=== PATIENT | female | born 1995 | race Two or more races ===

== ENCOUNTER 2016-11-13 21:50 | Emergency (ER) | payer OTHER ==
[2016-11-14 00:04] LABS: Hematocrit 37 % (35-47); Hemoglobin 12.5 g/dl (12.0-16.0); Mean Corpuscular HGB Conc 34 g/dl (31-36); Mean Corpuscular Hemoglobin 31 pg (27-31); Mean Corpuscular Volume 93 fL (80-97); Mean Platelet Volume 9 um3 (7.4-10.4); Red Blood Count 3.99 10^6/ul (4.0-5.4); Red Cell Distribution Width 13 % (10.5-15); White Blood Count 9.1 10^3/ul (3.5-10.8)
[2016-11-14 00:21] LABS: ALT 11 U/L (7-52); AST 12 U/L (13-39); Albumin 4.4 g/dL (3.2-5.2); Alkaline Phosphatase 37 U/L (34-104); Anion Gap 6 mmol/L (2-11); BUN/Creatinine Ratio 26.2 (8-20); Blood Urea Nitrogen 17 mg/dL (6-24); CO2 Carbon Dioxide 27 mmol/L (22-32); Calcium 9.2 mg/dL (8.6-10.3); Chloride 104 mmol/L (101-111); EGFR African American 145.3 (>60); Globulin 2.4 g/dL (2-4); Glucose 89 mg/dL (70-100); Lipase 39 U/L (11.0-82.0); Potassium 3.8 mmol/L (3.5-5.0); Sodium 137 mmol/L (133-145); Total Protein 6.8 g/dL (6.4-8.9)
[2016-11-14 00:46] VITALS: BP 99/60
--- NOTE | 2016-11-14 02:10 | ED ---
GI/ HPI - HPI Summary HPI Summary: 21F presents with intermittent RLQ for 2 weeks. She states she was seen at urgent care a week ago and they told her she has a cyst. She states she had her appendix removed when she was younger because it ruptured and it caused her to have a fallopian tube infection. She denies any n/v/d/c, dysuria, hematuria , vaginal discharge or bleeding, fever. She has never had this pain before. She denies any history of STDs. She has been taking ibuprofen for her pain. - History of Current Complaint Chief Complaint: EDAbdPain Time Seen by Provider: 11/13/16 22:52 Stated Complaint: PELVIC PAIN Pain Intensity: 7 - Allergy/Home Medications Allergies/Adverse Reactions: Allergies Allergy/AdvReac Type Severity Reaction Status Date / Time No Known Allergies Allergy Verified 11/13/16 21:53 PMH/Surg Hx/FS Hx/Imm Hx Endocrine/Hematology History: Denies: Hx Anticoagulant Therapy Cardiovascular History: Denies: Hx Hypertension Infectious Disease History: No Infectious Disease History: Denies: Traveled Outside the [place] in Last 30 Days - Family History Known Family History: Positive: Hypertension - Social History Alcohol Use: None Substance Use Type: Reports: None Smoking Status (MU): Never Smoked Tobacco Review of Systems Negative: Fever Negative: Chest Pain Negative: Shortness Of Breath Positive: Abdominal Pain - RLQ. Negative: Vomiting, Diarrhea, Nausea All Other Systems Reviewed And Are Negative: Yes Physical Exam Triage Information Reviewed: Yes Vital Signs On Initial Exam: Initial Vitals Temp Pulse Resp BP Pulse Ox 98.8 F 59 16 133/74 99 11/13/16 21:53 11/13/16 21:53 11/13/16 21:53 11/13/16 21:53 11/13/16 21:53 Vital Signs Reviewed: Yes Appearance: Positive: Well-Appearing Skin: Positive: Warm, Dry Head/Face: Positive: Normal Head/Face Inspection Eyes: Positive: Normal, EOMI, DOMINGO, Conjunctiva Clear Respiratory/Lung Sounds: Positive: Clear to Auscultation, Breath Sounds Present Cardiovascular: Positive: Normal, RRR Abdomen Description: Positive: Soft, Other: - mild tenderness in RLQ Bowel Sounds: Positive: Present - Sandy Coma Scale Coma Scale Total: 15 Diagnostics - Vital Signs Vital Signs Temp Pulse Resp BP Pulse Ox 11/13/16 23:31 57 98 11/13/16 23:30 98.5 F 57 16 99/60 98 11/13/16 21:53 98.8 F 59 16 133/74 99 - Laboratory Lab Results: Lab Results 11/13/16 11/13/16 Range/Units 23:43 23:43 WBC 9.1 (3.5-10.8) 10^3/ul RBC 3.99 L (4.0-5.4) 10^6/ul Hgb 12.5 (12.0-16.0) g/dl Hct 37 (35-47) % MCV 93 (80-97) fL MCH 31 (27-31) pg MCHC 34 (31-36) g/dl RDW 13 (10.5-15) % Plt Count 206 (150-450) 10^3/ul MPV 9 (7.4-10.4) um3 Neut % (Auto) 55.7 (38-83) % Lymph % (Auto) 34.7 (25-47) % [place] % (Auto) 7.6 (1-9) % Eos % (Auto) 1.2 (0-6) % Baso % (Auto) 0.8 (0-2) % Absolute Neuts (auto) 5.0 (1.5-7.7) 10^3/ul Absolute Lymphs (auto) 3.1 (1.0-4.8) 10^3/ul Absolute Monos (auto) 0.7 (0-0.8) 10^3/ul Absolute Eos (auto) 0.1 (0-0.6) 10^3/ul Absolute Basos (auto) 0.1 (0-0.2) 10^3/ul Absolute Nucleated RBC 0 10^3/ul Nucleated RBC % 0 Sodium 137 (133-145) mmol/L Potassium 3.8 (3.5-5.0) mmol/L Chloride 104 (101-111) mmol/L Carbon Dioxide 27 (22-32) mmol/L Anion Gap 6 (2-11) mmol/L BUN 17 (6-24) mg/dL Creatinine 0.65 (0.51-0.95) mg/dL Est GFR ( Amer) 145.3 (>60) Est GFR (Non-Af Amer) 113.0 (>60) BUN/Creatinine Ratio 26.2 H (8-20) Glucose 89 (70-100) mg/dL Calcium 9.2 (8.6-10.3) mg/dL Total Bilirubin 0.40 (0.2-1.0) mg/dL AST 12 L (13-39) U/L ALT 11 (7-52) U/L Alkaline Phosphatase 37 (34-104) U/L C-React Prot High Sens < 0.20 mg/L Total Protein 6.8 (6.4-8.9) g/dL Albumin 4.4 (3.2-5.2) g/dL Globulin 2.4 (2-4) g/dL Albumin/Globulin Ratio 1.8 (1-3) Lipase 39 (11.0-82.0) U/L Beta HCG, Quant < 0.60 mIU/mL Result Diagrams: 11/13/16 23:43 11/13/16 23:43 Lab Statement: Any lab studies that have been ordered have been reviewed, and results considered in the medical decision making process. - Ultrasound No standard instances Ultrasound Interpretation: Positive (See Comments) - 1.7cm complex follicule in right ovary reflexts hemorrhagic follicle Ultrasound Interpretation Completed By: Radiologist SOPHIAU Course/Dx - Course Course Of Treatment: 21F presents with intermittent RLQ for 2 weeks. She states she was seen at urgent care a week ago and they told her she has a cyst. She states she had her appendix removed when she was younger because it ruptured and it caused her to have a fallopian tube infection. She denies any other symptoms besides pain. on exam mild tenderness in RLQ. normal wbc and crp and h/h. u/s shows hemorrhagic follicle. told to follow up with [facility]. patient understands and agrees with plan. - Diagnoses Differential Diagnoses - Female: Ovarian Cyst, Ovarian Torsion, Urinary Tract Infection Provider Diagnoses: Hemorrhagic cyst of right ovary Discharge - Discharge Plan Condition: Good Disposition: HOME Patient Education Materials: Ruptured Ovarian Cyst (ED) Referrals: [facility] [Primary Care Provider] - Coleman Mccray MD [Medical Doctor] - Additional Instructions: Take Tylenol or ibuprofen for pain Follow up with [facility] Return to ED if develop any new or worsening symptoms
--- NOTE | 2016-11-14 07:45 | RAD ---
INDICATION: 21-year-old with pelvic pain COMPARISON: None TECHNIQUE: Longitudinal and transverse transvaginal scans of the pelvis were obtained. FINDINGS: Uterus: The uterus is normal in size. There are no focal masses. The uterus measures 7.0 x 2.9 x 4.1 cm. Endometrial thickness: The endometrial thickness is measured at 0.6 cm. . Free fluid: There is no significant free fluid . Ovaries: The ovaries are normal in size. The right ovary measures 5.4 x 2.3 x 1.2 cm. The left ovary measures 3.4 x 1.4 x 2.3 cm. There is a mildly complex right ovarian cyst which is likely hemorrhagic or involuting. This measures 1.7 x 1.0 x 1.2 cm. Doppler interrogation demonstrates flow to each ovary. Other: None IMPRESSION: PROBABLE SMALL INVOLUTING OR HEMORRHAGIC RIGHT OVARIAN CYST.
== END 2016-11-14 02:15 | disposition home or self-care (01) ==
LOC: ED 21:50
DX: N83.201 Unspecified ovarian cyst, right side (principal); Z32.02 Encounter for pregnancy test, result negative
CPT/HCPCS: 36415; 76830; 80053; 83690; 84702; 85025; 86141; 99282

== ENCOUNTER → 2017-08-12 11:23 | Emergency (ER) | payer MEDICAID, OTHER ==
[2017-08-12 11:37] VITALS: BP 110/67
--- NOTE | 2017-08-12 12:52 | RAD ---
HISTORY: Head contusion, subacute trauma, nausea, headache COMPARISONS: None TECHNIQUE: Multiple contiguous axial CT scans were obtained of the head without intravenous contrast. FINDINGS: HEMORRHAGE/INFARCT: There is no hemorrhage or acute infarct. MASSES/SHIFT: There is no mass or shift. EXTRA-AXIAL SPACES: There are no extra-axial fluid collections. SULCI AND VENTRICLES: The sulci and ventricles are normal in size and position for the patient's stated age. CEREBRUM: There are no focal parenchymal abnormalities. BRAINSTEM: There are no focal parenchymal abnormalities. CEREBELLUM: There are no focal parenchymal abnormalities. VESSELS: The vessels are grossly normal. PARANASAL SINUSES: The paranasal sinuses are clear. ORBITS: The orbits are unremarkable. BONES AND SOFT TISSUE: No bone or soft tissue abnormalities are noted. OTHER: None IMPRESSION: NO ACUTE INTRACRANIAL PATHOLOGY.
--- NOTE | 2017-08-12 13:00 | RAD ---
INDICATION: Facial pain post fall striking head yesterday. COMPARISON: August 12, 2017 CT brain. TECHNIQUE: Multidetector CT base of the skull through mandible without contrast. Multiplanar reformation. REPORT: Negative for superficial soft tissue edema or loculated hematoma. Unremarkable orbital contents. The orbital and maxillary sinus margins, zygomatic arches, lamina papyracea, base of the maxilla, pterygoid plates, and nasal bones are intact. The mandible is intact. Normal temporal mandibular joint alignment. Complete opacification of the LEFT maxillary sinus and infundibulum of the LEFT anterior ostiomeatal unit with mild expansion of the sinus. Negative for air-fluid level. Negative for appreciable thickening of the LEFT maxillary sinus ervin. 0.8 cm mucous retention cyst or polyp at the floor of the RIGHT maxillary sinus. The remaining paranasal sinuses are clear. Clear mastoid air spaces. IMPRESSION: 1. Negative for maxillofacial fracture or soft tissue hematoma. 2. Large mucous retention cyst versus mucocele at the LEFT maxillary sinus.
--- NOTE | 2017-08-12 17:43 | UC ---
Scot Hand Angela, scribed for Abhi Magana MD on 08/12/17 at 1156 . Minor Trauma HPI - HPI Summary HPI Summary: This pt is a 22 y/o female presenting to [facility] c/o headache since yesterday. Pt reports that she was going home with her cello at approximately 14:30 yesterday when one of the straps from her cello became loose and she tripped. Pt then fell forward, hitting the left side of her head and forehead. Denies LOC. Pt notes she developed pain s/p her head strike. She additionally states nausea and photophobia. Denies vomiting. Pt went to sleep last night and this morning her pain worsened. She currently rates her pain 6 to 7 out of 10 in severity. - History of Current Complaint Chief Complaint: UCHeadInjury Stated Complaint: FELL AND HIT HEAD Time Seen by Provider: 08/12/17 11:42 Hx Obtained From: Patient Hx Last Menstrual Period: current Onset/Duration: Lasting Days - 1, Still Present Onset Of Pain: Immediate Severity Currently: Moderate Pain Intensity: 7 Pain Scale Used: 0-10 Numeric Mechanism Of Injury: Blunt Trauma, Fall From A Standing Position Aggravating Factor(s): Other: - lights Alleviating Factor(s): Nothing Associated Signs And Symptoms: Positive: Other: - photophobia, nausea. Negative : Loss Of Consciousness, Ecchymosis, Swelling - Allergies/Home Medications Allergies/Adverse Reactions: Allergies Allergy/AdvReac Type Severity Reaction Status Date / Time No Known Allergies Allergy Verified 08/12/17 11:37 Home Medications: Home Medications Control 08/12/17 [History] Ibuprofen 2 tab PO TID PRN 08/12/17 [History Confirmed 08/12/17] PMH/Surg Hx/FS Hx/Imm Hx Other Endocrine History: DENIES: diabetes Other Cardiovascular History: DENIES: HTN Other History Of: Negative For: Anticoagulant Therapy - Surgical History Surgical History: Yes Surgery Procedure, Year, and Place: appendectomyn@ 13 - Family History Known Family History: Positive: Hypertension, Diabetes - Social History Alcohol Use: None Substance Use Type: None Smoking Status (MU): Never Smoked Tobacco - Immunization History Most Recent Tetanus Shot: UTD Review of Systems Constitutional: Negative Skin: Negative Eyes: Photophobia ENT: Negative Respiratory: Negative Cardiovascular: Negative Gastrointestinal: Nausea, Other - NEG: vomiting Genitourinary: Negative Motor: Negative Neurovascular: Negative Musculoskeletal: Negative Neurological: Headache Psychological: Negative Is Patient Immunocompromised?: No All Other Systems Reviewed And Are Negative: Yes Physical Exam - Summary Physical Exam Summary: VITAL SIGNS: Reviewed. GENERAL: Patient is a well-developed and nourished female who is lying comfortable in the stretcher. Patient is not in any acute respiratory distress. HEAD AND FACE: Normocephalic. Tenderness on the left temporal area. EYES: PERRLA, EOMI x 2. EARS: Hearing grossly intact. MOUTH: Oropharynx within normal limits. NECK: Supple, trachea is midline, no adenopathy, no JVD, no carotid bruit. CHEST: Symmetric, no tenderness at palpation LUNGS: Clear to auscultation bilaterally. No wheezing or crackles. CVS: Regular rate and rhythm, S1 and S2 present, no murmurs or gallops appreciated. ABDOMEN: Soft, non-tender. Bowel sounds are normal. No abdominal abnormal pulsations. EXTREMITIES: Full ROM in all major joints, no edema, no cyanosis or clubbing. NEURO: Alert and oriented x 3. No acute neurological deficits. Speech is normal and follows commands. SKIN: Dry and warm GCS: 15 Triage Information Reviewed: Yes Vital Signs: Initial Vital Signs Temp 98.4 F 08/12/17 11:32 Pulse 78 08/12/17 11:32 Resp 18 08/12/17 11:32 BP 110/67 08/12/17 11:32 Pulse Ox 100 08/12/17 11:32 Vital Signs Reviewed: Yes Diagnostics - Laboratory Diagnostic Studies Completed/Ordered: Brain CT, as read by radiologist. IMPRESSION: No acute intracranial pathology. Maxillofacial CT, as read by radiologist. IMPRESSION: 1. Negative for maxillofacial fracture or soft tissue hematoma. 2. Large mucous retention cyst versus mucocele at the LEFT maxillary sinus. Dr. Magana has reviewed these radiology report. Re-Evaluation - Re-Evaluation First Eval Re-Evaluation Time: 12:55 Comment: I reviewed the CT results with the pt. Pt will be discharged home. Minor Trauma Course/Dx - Course Course Of Treatment: This pt is a 22 y/o female presenting to [facility] c/o headache since yesterday. Pt reports that she was going home with her cello at approximately 14:30 yesterday when one of the straps from her cello became loose and she tripped. Pt then fell forward, hitting the left side of her head and forehead. Denies LOC. Pt notes she developed pain s/p her head strike. She additionally states nausea and photophobia. Denies vomiting. Pt went to sleep last night and this morning her pain worsened. She currently rates her pain 6 to 7 out of 10 in severity. On exam pt is neurologically intact. Brain CT shows no acute intracranial pathology. Maxillofacial CT shows 1. Negative for maxillofacial fracture or soft tissue hematoma. 2. Large mucous retention cyst versus mucocele at the LEFT maxillary sinus. I discussed all the CT results and findings with the patient. Pt was instructed to return to the urgent care or go to ER immediately if any of the symptoms return or worsens. Plan of care was discussed with the patient and pt understands and agrees. All questions were answered to patient satisfaction. There were no further complaints or concerns. Pt will be discharged to home with follow up from PCP. Pt is hemodynamically stable, alert and oriented x3. - Differential Dx/Diagnosis Provider Diagnoses: Head contusion Discharge - Sign-Out/Discharge Documenting (check all that apply): Discharge - discharge to home - Discharge Plan Condition: Stable Disposition: HOME Patient Education Materials: Contusion in Adults (ED) Referrals: [facility] PHYSICIAN REFERRAL [Outside] No Primary Care Phys,[facility] [Primary Care Provider] - Additional Instructions: RETURN TO URGENT CARE OR THE ED FOR ANY WORSENING OR NEW SYMPTOMS. The documentation as recorded by the Scot lamb Angela accurately reflects the service I personally performed and the decisions made by me, Abhi Magana MD.
== END | disposition home or self-care (01) ==
LOC: UCEAST 11:23
DX: S00.93XA Contusion of unspecified part of head, initial encounter (principal); W01.0XXA Fall on same level from slipping, tripping and stumbling without subsequent striking against object, initial encounter; Y93.01 Activity, walking, marching and hiking; Y92.9 Unspecified place or not applicable; H53.149 Visual discomfort, unspecified; R11.0 Nausea; Z32.02 Encounter for pregnancy test, result negative
CPT/HCPCS: 70450; 70486; 84702; 99211; G0463